=== PATIENT | female | born 1970 | race African-American/Black ===

== ENCOUNTER 2019-08-01 12:58 | Emergency (ER) | payer SELFPAY ==
[~2019-08-01] VITALS: Ht 157.5 cm; Wt 54.0 kg
[2019-08-01] MEDS ORDERED: METHOCARBAMOL 500MG TABLET PO ONE (15:30)
[2019-08-01] MEDS ORDERED: KETOROLAC 60MG/2ML VIAL IM ONE (15:30)
[2019-08-01 18:23] VITALS: BP 146/78
== END 2019-08-01 18:25 | disposition home or self-care (01) ==
LOC: ER 12:58
DX: S40.012A Contusion of left shoulder, initial encounter (principal); S16.1XXA Strain of muscle, fascia and tendon at neck level, initial encounter; V49.49XA Driver injured in collision with other motor vehicles in traffic accident, initial encounter; Y93.89 Activity, other specified; Y92.89 Other specified places as the place of occurrence of the external cause; Y99.8 Other external cause status
CPT/HCPCS: 70450; 72125; 73030; 96372; 99284; J1885